=== PATIENT | female | born 1940 | race Caucasian/White ===

== ENCOUNTER → 2017-06-29 06:12 | Day surgery (SDC) | payer MEDICARE, OTHER ==
--- NOTE | 2017-06-22 12:23 | HP ---
AMENDED REPORT NOW INCLUDES COSIGNER DESIGNATION - ESIGNED BEFORE ADJUSTMENT CC: Dr. Young; Dr. Brandon Vaz * PREOPERATIVE HISTORY AND PHYSICAL: DATE OF ADMISSION: 06/29/17 This patient is scheduled for same-day surgery admission with possible overnight extension by Dr. Young on 06/29/17. DATE OF EXAM: 06/22/17. ATTENDING SURGEON: Dr. Stewart Young ( (dictated by Roma Aguero NP). CHIEF COMPLAINT: Ventral hernia. HISTORY OF PRESENT ILLNESS: The patient is a 77-year-old female, known to Dr. Young, from open ventral hernia repair with mesh in August 2016. She states that in October of this year, she developed bronchitis and had significant coughing. She now notes a bulge just at the umbilicus and notices it protrudes quite a bit upon standing. She denies any nausea or vomiting or change in bowel habits or generalized abdominal pain. Dr. Young described to her that she has a ventral incisional hernia recurrence and has recommended laparoscopic repair of the ventral incisional hernia with mesh. He described the nature of the surgical procedure, the rationale for the procedure, the relevant risks and benefits, and the possibility of an overnight stay in the hospital as well as the use of mesh. Today, I reviewed the expected postoperative care and recovery. The patient has had a chance to ask questions and stated that she understands the information and is satisfied with the answers given to her questions. She will sign surgical consent on the day of surgery. PAST MEDICAL HISTORY: Type 2 diabetes, chronic obstructive pulmonary disease, breast cancer status post bilateral mastectomy, smoking, and obesity. PAST SURGICAL HISTORY: Open ventral hernia repair with mesh in August [address] Young; laparoscopic cholecystectomy in 2013; bilateral mastectomy; bladder suspension and tubal ligation. MEDICATIONS: 1. Metformin 500 mg 1 tablet by mouth b.i.d. and she was advised to hold metformin on 06/28/17, and on the morning of surgery. 2. Calcium 600 mg p.o. daily. 3. Motrin 200 mg as needed. 4. ProAir 2 puffs every 4 hours as needed. 5. Clarinex 5 mg p.o. daily. 6. Advair Diskus 100-500 mcg per dose 1 inhalation b.i.d. 7. Multivitamin daily. ALLERGIES: BACTRIM, unspecified reaction. SODIUM PENTOTHAL, vomiting. FAMILY HISTORY: No known anesthesia complications, bleeding tendencies, or clotting disorders. SOCIAL HISTORY: She lives alone; her daughter will accompany her on the day of surgery; she smokes 1 pack to 1-1/2 packs of cigarettes daily and currently does not have a plan to stop; she denies the use of alcohol or other substances. REVIEW OF SYSTEMS: Constitutional: No fevers, chills, excessive fatigue, or weight loss. Endocrine: Type 2 diabetes, fingersticks in the morning typically run between 96 and 102; no thyroid disease. Respiratory: No current cough; history of bronchitis in October 2016. Cardiovascular: No anginal chest pain or palpitations. No history of heart attack. Gastrointestinal: No nausea, vomiting, diarrhea, or constipation. No change in bowel habits. Genitourinary: No dysuria. Musculoskeletal: Mild joint pain. Neurologic: No headache or blurred vision or areas of focal weakness. General: No previous anesthesia complications. No bleeding tendencies. No history of deep vein thrombosis or pulmonary embolism. PHYSICAL EXAMINATION GENERAL SURVEY: The patient is a 77-year-old female, well developed, obese, in no acute distress. VITAL SIGNS: Height 63 inches, weight 200 pounds, body mass index 35.4. Blood pressure 120/80, pulse 84 and regular, respiratory rate 16, temperature 97.4 tympanic. SKIN: Warm, dry, intact. HEENT: Benign. NECK: Supple. No cervical lymphadenopathy. LUNGS: Breath sounds bilaterally clear and equal. HEART: Regular rate and rhythm. No murmurs or rubs appreciated. BACK: No CVA tenderness. ABDOMEN: Active bowel sounds, obese, soft; nondistended; well healed vertical incision just above the umbilicus and below this, there is a palpable fascial defect consistent with a recurrent ventral incisional hernia. This is reducible and nontender; upper abdominal laparoscopic incisions well healed. No organomegaly. EXTREMITIES: Warm without edema or skin ulcerations. PELVIC: Deferred. RECTAL: Deferred. NEUROLOGIC: Alert and oriented x3. Steady gait. IMPRESSION: Recurrent ventral incisional hernia. PLAN: Same-day surgery admission with possible overnight extension to Dr. Young's service on 06/29/17, for laparoscopic repair of ventral incisional hernia with mesh. NORMA AGUERO, HEEL ATTACHER [id number]/[facility] #: [id number] [facility] CENTERReba
[~2017-06-29 06:12] MED LIST: Acetaminophen TAB* 325 MG ONE; Acetaminophen TAB* 325 MG PO PRN; Buffered Lidocaine 0.9% SYRIN* 5 ML/SYR SYRINGE INTRADERM ONE; Buffered Lidocaine 0.9% SYRIN* 5 ML/SYR SYRINGE ONE; Bupivacaine 0.25% SDV* 30 ML ONE; Cisatracurium* 2 MG/ML MDV 5 ML ONE; Dexamethasone IV* 4 MG/ML 1 ML (4 MG) ONE; DiMENhydriNATE IV* 50 MG/ML VIAL IV PUSH PRN; Famotidine IV* 10 MG/ML 2 ML (20 mg) ONE; HYDROcodone/ACETAMIN 5-325 MG* 1 TAB PO PRN; Heparin VIAL(*) 5000 UNITS/ML VIAL (FIVE THOUSAND) ONE; Ketorolac INJ* 30 MG/ML 1 ML VIAL ONE; Levalbuterol 1.25MG/0.5ML NEB INH PRN; Lidocaine 2% PF * 5 ML VIAL ONE; Midazolam* 1 MG/ML 2 ML VIAL (2 MG) ONE; Ondansetron INJ* 2 MG/ML VIAL IV PRN; PROCHLORPERAZINE INJ 5 MG/ML 2 ML VIAL IV PRN; Phenylephrine INJ* 10 MG/ML 1 ML VIAL (10 MG) ONE; Phenylephrine IV* 40 MCG/ML 10 ML SYRINGE ONE; Propofol* 10 MG/ML 20 ML BTL IV PUSH ONE; ceFAZolin 2 GM PREMIX (*) 50 ML IVPB ONE; fentaNYL* 50 MCG/ML 2 ML VIAL (100 MCG VIAL) IV PRN; fentaNYL* 50 MCG/ML 2 ML VIAL (100 MCG VIAL) ONE
[2017-06-29 12:17] VITALS: BP 124/68
--- NOTE | 2017-06-30 10:03 | OP ---
CC: [facility]; Dr. Navarrete* OPERATIVE REPORT: DATE OF OPERATION: 06/29/17 - [facility] DATE OF : 36 SURGEON: Stewart Young MD AIR VALVE REPAIRER: TRA Moran ANESTHESIOLOGIST: Dr. Suarez. ANESTHESIA: General with local. PRE-OP DIAGNOSIS: Recurrent ventral incisional hernia. POST-OP DIAGNOSIS: Recurrent ventral incisional hernia. OPERATIVE PROCEDURE: Laparoscopic repair of recurrent ventral incisional hernia using a Ventralight ST Mesh with Echo PS Positioning System 15.2 cm x 20.3 cm mesh. WOUND CLASSIFICATION: I. ESTIMATED BLOOD LOSS: Minimal. SPECIMENS: None. COMPLICATIONS: None. DRAINS: None. BRIEF HISTORY: Ms. Porter is a very pleasant 77-year-old woman, who has had a laparoscopic cholecystectomy in the past and developed a small incisional hernia at umbilicus, which was repaired with mesh and now has recurrence and is taken to the operating for repair. DESCRIPTION OF PROCEDURE: Written informed consent was obtained, preoperative antibiotics administered and the abdomen was marked with indelible ink. The patient was taken to the operating room and placed in a supine position. Sequential compression devices and a warming blanket were applied. General anesthesia was administered. A Butler catheter was inserted. The abdomen was prepped and draped in the usual sterile fashion. Time-out verification was completed. Initially, a small transverse incision was made in the left upper quadrant, the abdomen just below the costal margin and under direct vision the peritoneal cavity was entered under vision. A 12-mm blunt port was inserted and the abdomen was insufflated to the 15-mmHg. Upon examining the abdomen, it would appear that there is only a small omental adhesion to the anterior abdominal wall in the site of the hernia. The hernia defect was easily visible and was approximately 3 cm in diameter just above the umbilicus and otherwise contain no bowel or other adhesions. There was no other adhesive disease noted in the anterior abdominal wall. A 5-mm port was placed in the mid abdomen on the left side, and a second 5-mm port was placed in the right lower abdominal wall under direct vision. The small adhesion was taken down sharply. We then measured the hernia on the anterior abdominal wall and its dimensions measured approximately 3 cm. After this and with the plan to cover both the umbilicus and the hernia, which was slightly above the umbilicus, in light of a recurrence it was felt that a generous mesh would be placed to prevent recurrence. Next, the Ventralight 15 x 20.3 cm mesh was rolled and passed into the abdominal cavity. It was oriented in the proper position. A small incision was made just above the hernia on the abdominal wall with a 11 - blade knife and the suture passer was then passed through the abdominal wall and the positioning device tubing was grasped and brought up through the anterior abdominal wall just above the center of the umbilicus as mentioned above. The positioning device was then inflated, which gave support to the mesh and we positioned this nicely with the oval orientation superior and inferior on the anterior abdominal wall. Once I was comfortable that this covered the hernia nicely with a generous overlap, the CapSure device was used to attach the mesh at 1 cm intervals circumferentially around the entire mesh. I placed a second concentric ring of joel about a centimeter or two in from the edge of the mesh for added attachment. The positioning system inflation tubing was then deflated and subsequently removed completely from the abdominal cavity through the 12-mm port. Hemostasis was assured. The mesh was adherent to the anterior abdominal wall. There is no wrinkling and covered nicely with no tension. Hemostasis was assured. All ports removed under direct vision of the camera. The left upper quadrant incision was then closed using 2 separate #1 Polysorb sutures placed with the Endo Close needle under direct vision. All skin incisions were approximated with subcuticular 4-0 Polysorb suture. Steri- Strips and sterile dressings were applied. The patient tolerated the procedure well and was taken to the recovery room in stable condition. [id number]/[facility] #: [id number] JIMY
== END | disposition home or self-care (01) ==
LOC: OR 06:12
PROVIDERS: ATTEND Surgery
DX: K43.2 Incisional hernia without obstruction or gangrene (principal); E11.9 Type 2 diabetes mellitus without complications; Z79.84 Long term (current) use of oral hypoglycemic drugs; J44.9 Chronic obstructive pulmonary disease, unspecified; E66.9 Obesity, unspecified; F17.210 Nicotine dependence, cigarettes, uncomplicated; Z88.1 Allergy status to other antibiotic agents; Z88.8 Allergy status to other drugs, medicaments and biological substances; Z68.35 Body mass index [BMI] 35.0-35.9, adult; Z85.3 Personal history of malignant neoplasm of breast
CPT/HCPCS: A9270-GY; C1781; J0690; J1100; J1644; J1885; J2250; J2704; J3010